=== PATIENT | female | born 1995 | race Caucasian/White ===

== ENCOUNTER 2017-07-02 19:34 | Inpatient (IN) | payer BC ==
[2017-07-03 00:35] LABS: ABS Basophils 0 10^3/ul (0-0.2); ABS Eosinophils 0 10^3/ul (0-0.6); ABS Monocytes 0.5 10^3/ul (0-0.8); ABS Neutrophils 11.7 10^3/ul (1.5-7.7); ABS Nucleated RBC 0 10^3/ul; Eosinophil % 0 % (0-6); Hematocrit 32 % (35-47); Hemoglobin 11.4 g/dl (12.0-16.0); Lymphocyte % 7.8 % (25-47); Mean Corpuscular HGB Conc 35 g/dl (31-36); Mean Corpuscular Hemoglobin 33 pg (27-31); Mean Corpuscular Volume 93 fL (80-97); Mean Platelet Volume 9 um3 (7.4-10.4); Nucleated Red Blood Cells % 0.1; Platelet Count 219 10^3/ul (150-450); Red Blood Count 3.47 10^6/ul (4.0-5.4); Red Cell Distribution Width 12 % (10.5-15); White Blood Count 13.2 10^3/ul (3.5-10.8)
[2017-07-03] MEDS ORDERED: OBEPIDURAL* 250 ML EPIDURAL ONE (00:40)
[2017-07-03] MEDS ORDERED: Sodium Citrate/Citric Acid* 15 ML UDC PO PRN (01:23)
[2017-07-03] MEDS ORDERED: Famotidine TAB* 20 MG PO PRN (01:23)
[2017-07-03] MEDS ORDERED: Phenylephrine IV* 40 MCG/ML 10 ML SYRINGE IV PUSH PRN ×2 (01:23)
[2017-07-03] MEDS ORDERED: Lidocaine 1% MPF* 2 ML VIAL ONE (01:48)
[2017-07-03] MEDS ORDERED: OBEPIDURAL* 250 ML EPIDURAL SCH (02:00)
[2017-07-03] MEDS ORDERED: ceFOXitin 2 GM IVPREMIX* 2 GM/50 ML BAG IVPB ONE (06:50)
[2017-07-03] MEDS ORDERED: ceFOXitin 2 GM IVPREMIX* 2 GM/50 ML BAG ONE (06:52)
[2017-07-03] MEDS ORDERED: Morphine PF AMP (0.5MG/ML)* 5 MG/10 ML AMP ONE (07:11)
[2017-07-03] MEDS ORDERED: fentaNYL* 50 MCG/ML 2 ML VIAL (100 MCG VIAL) IV PRN (08:58)
[2017-07-03] MEDS ORDERED: diPHENhydraMINE IV* 50 MG/ML 1 ml VIAL (BENADRYL) IV PRN (08:58)
[2017-07-03] MEDS ORDERED: Naloxone* 0.4 MG/ML 1 ML VIAL IV PRN ×2 (08:58→09:00)
[2017-07-03] MEDS ORDERED: oxyCODONE/Acetamin 5/325 MG* TAB PO PRN (09:00)
[2017-07-03] MEDS ORDERED: Naloxone* 2 MG in NS 0.9% 250 ML* 250 ML IV PRN (09:00)
[2017-07-03] MEDS ORDERED: Ondansetron INJ* 2 MG/ML VIAL IV PRN (09:00)
[2017-07-03] MEDS ORDERED: Nalbuphine* 20 MG/ML 1 ML VIAL IV PRN (09:00)
[2017-07-03] MEDS ORDERED: Acetaminophen TAB* 325 MG PO PRN (09:11)
[2017-07-03] MEDS ORDERED: Glycerin ADULT SUPP PR PRN (09:11)
[2017-07-03] MEDS ORDERED: Dibucaine 1% 28.35 GM TUBE PR PRN (09:11)
[2017-07-03] MEDS ORDERED: Witch Hazel PAD* JAR TOPICAL PRN (09:11)
[2017-07-03] MEDS ORDERED: Oxytocin in LR* 20 UNITS/1,000 ML BAG IVPB ONE (09:16)
[2017-07-03] MEDS ORDERED: Oxytocin in LR* 20 UNITS/1,000 ML BAG IVPB SCH (10:00)
[2017-07-03] MEDS: Simethicone TAB* 80 MG TAB.CHEW PO SCH ×3 (11:16→21:56)
[2017-07-03] MEDS: Docusate CAP* 100 MG PO SCH ×2 (14:17→21:56)
[2017-07-03] MEDS: Ketorolac INJ* 30 MG/ML 1 ML VIAL IV PRN ×2 (16:08→22:56)
[2017-07-04] MEDS: Ketorolac INJ* 30 MG/ML 1 ML VIAL IV PRN (04:46)
[2017-07-04 06:53] LABS: ABS Basophils 0 10^3/ul (0-0.2); ABS Eosinophils 0 10^3/ul (0-0.6); ABS Lymphocytes 1.5 10^3/ul (1.0-4.8); ABS Monocytes 1.2 10^3/ul (0-0.8); ABS Neutrophils 10.6 10^3/ul (1.5-7.7); ABS Nucleated RBC 0 10^3/ul; Eosinophil % 0.3 % (0-6); Hematocrit 27 % (35-47); Hemoglobin 9.6 g/dl (12.0-16.0); Lymphocyte % 11.2 % (25-47); Mean Corpuscular HGB Conc 36 g/dl (31-36); Mean Corpuscular Hemoglobin 33 pg (27-31); Mean Corpuscular Volume 94 fL (80-97); Mean Platelet Volume 8 um3 (7.4-10.4); Nucleated Red Blood Cells % 0; Platelet Count 185 10^3/ul (150-450); Red Blood Count 2.88 10^6/ul (4.0-5.4); Red Cell Distribution Width 13 % (10.5-15); White Blood Count 13.3 10^3/ul (3.5-10.8)
[2017-07-04] MEDS: Simethicone TAB* 80 MG TAB.CHEW PO SCH ×4 (07:53→21:07)
[2017-07-04] MEDS: Ferrous Gluconate TAB* 324 MG TAB PO SCH ×2 (07:53→21:06)
[2017-07-04] MEDS: Docusate CAP* 100 MG PO SCH ×3 (07:53→21:06)
--- NOTE | 2017-07-04 08:54 | OP ---
OPERATIVE REPORT: DATE OF OPERATION: 07/03/17 DATE OF : 89 SURGEON: Salima Corral MD ONLINE ADVERTISING ANALYST: Aureliano Deshpande CNM ANESTHESIOLOGIST: Dr. Reyna. ANESTHESIA: Spinal. DIE TROUBLE SHOOTER: Dr. Milan. PRE-OP DIAGNOSIS: Intrauterine at 40-5/7 weeks, arrest of descend. POST-OP DIAGNOSIS: Intrauterine at 40-5/7 weeks, arrest of descend, delivered. OPERATIVE PROCEDURE: Primary low transverse section with vacuum assist of head. ESTIMATED BLOOD LOSS: 600 cc. URINE OUTPUT: 400 cc of pink tinged urine with clearing in the tube. FLUIDS: 3000 cc of crystalloid. FINDINGS: Revealed a vertex female , LOT, deep transverse arrest, wedged in pelvis. No nuchal cord. No meconium. Apgars were 8 at 1 minute, 9 at 5 minutes. Normal appearing tubes and ovaries. Normal uterine cavity with no evidence of retained membranes or placental tissue. Normal appearing placenta, manually extracted, 3-vessel cord and intact. COMPLICATIONS: None apparent. DISPOSITION: Stable to recovery room. DESCRIPTION OF PROCEDURE: The patient was placed in dorsal lithotomy position. The abdomen was prepp ed and draped in a sterile standard fashion. Anesthesia was tested to appropriate level. The patien t was identified with universal protocol for correct procedure, position and patient. After universa l protocol, incision was made two fingerbreadths above the pubic symphysis that was carried down thro ugh to the fascia. The fascia was scored in the midline and the fascial incision was extended latera lly and superiorly using Avila scissors. The fascia was sharply and bluntly from the rectus muscle with blunt and sharp dissection and the peritoneum was then entered bluntly. Peritoneal inci devika was extended superiorly and inferiorly while directly visualizing the bowel and bladder with Met zenbaum scissors. The bladder blade was inserted. The lower uterine segment was identified, tented up with an Allis, and incised with scalpel. This was carried down through to the uterine cavity and the incision was extended laterally and superiorly using bandage scissors. The was found to b e left occiput transverse deep arrest with wedging in the pelvis. The head was reduced and delivered through the abdominal incision with vacuum. Anterior, then posterior shoulder delivered, then the c ord was allowed to pulse and was then milked and then clamped and then cut. The was handed of f to awaiting hand meat salter. Appropriate cord blood was obtained. The placenta was then manually ext racted and noted to be intact 3-vessel cord. The uterus was exteriorized. The uterine cavity was ex plored and noted to be free of any membranes or placental tissue. The uterus was wrapped in wet lapa rotomy sponge and the incision was clamped with broad Allises. The uterine incision itself was reapp roximated in two layers, first layer running locked 0 Vicryl x2 and the second layer running imbricat ed 0 Vicryl x1. Uterus was returned intra-abdominally. Hemostasis was noted at the hysterotomy site. Colic gutters were lavaged and hemostasis again was reassured at the hysterotomy site. The periton eum was then clamped with Kellys and reapproximated using 3-0 Vicryl in a running fashion. Subfascia l area was visualized and hemostasis assured. The fascia was then reapproximated using 0 Vicryl x2 i n a running fashion. Subcu was lavaged and noted to be under 2 cm in thickness. Bovie coagulation w as used to assure hemostasis and then the skin was reapproximated using a 4-0 Monocryl in a subcuticu lar fashion. Mastisol and Steri's were applied. All sponge, needle, instrument, and blade counts wer e correct throughout the case and then both patient and baby were taken into recovery room. Patient remained stable throughout the entirety of the case. [id number]/[facility] #: [id number]
[2017-07-04] MEDS: Ibuprofen TAB* 600 MG PO PRN ×3 (10:40→23:10)
[2017-07-04] MEDS: oxyCODONE/Acetamin 5/325 MG* TAB PO PRN (17:14)
[2017-07-05] MEDS: Ibuprofen TAB* 600 MG PO PRN ×3 (04:25→17:05)
[2017-07-05] MEDS: oxyCODONE/Acetamin 5/325 MG* TAB PO PRN ×3 (06:50→17:05)
--- NOTE | 2017-07-05 06:54 | PTEDU ---
Patient Name: JAILYN RAVI JAILYN RAVI selected video: Never Ever Shake a Baby to view on 07/05/2017 at 6:53:41 AM from [facility] [id number]
--- NOTE | 2017-07-05 07:04 | PTEDU ---
Patient Name: JAILYN RAVI JAILYN RAVI selected video: BBOB: Nurturing Your Gorgeous &Growing Baby by to view o n 07/05/2017 at 7:03:42 AM [email or web address]
--- NOTE | 2017-07-05 07:33 | PTEDU ---
Patient Name: JAILYN RAVI JAILYN RAVI selected video: Follow Me Mum: The Diallo to Successful to view on 07/05/19 18 at 7:32:21 AM from [id number]
[2017-07-05] MEDS: Docusate CAP* 100 MG PO SCH ×3 (09:16→21:01)
[2017-07-05] MEDS: Ferrous Gluconate TAB* 324 MG TAB PO SCH ×2 (09:16→21:01)
[2017-07-05] MEDS: Simethicone TAB* 80 MG TAB.CHEW PO SCH ×4 (09:16→21:01)
[2017-07-06] MEDS: Ibuprofen TAB* 600 MG PO PRN ×2 (02:05→08:51)
[2017-07-06] MEDS: Ferrous Gluconate TAB* 324 MG TAB PO SCH (08:51)
[2017-07-06] MEDS: Docusate CAP* 100 MG PO SCH ×2 (08:52→12:11)
[2017-07-06] MEDS: Simethicone TAB* 80 MG TAB.CHEW PO SCH ×2 (08:52→12:11)
[2017-07-06 09:41] VITALS: BP 109/70
[2017-07-06] MEDS: oxyCODONE/Acetamin 5/325 MG* TAB PO PRN (12:11)
== END 2017-07-06 12:44 | disposition home or self-care (01) | DRG 540 ==
LOC: MCHOBOUT 19:34 → MCHOB 20:24
PROVIDERS: ADMIT Midwife; ATTEND Obstetrics & Gynecology
PROC: 10907ZC Drainage of Amniotic Fluid, Therapeutic from Products of Conception, Via Natural or Artificial Opening (ICD-10-PCS; 2017-07-03)
PROC: 10D00Z1 Extraction of Products of Conception, Low, Open Approach (ICD-10-PCS; principal; 2017-07-03 07:18)
DX: O32.4XX0 Maternal care for high head at term, not applicable or unspecified (principal); D64.9 Anemia, unspecified; O48.0 Post-term pregnancy; O77.0 Labor and delivery complicated by meconium in amniotic fluid; O90.81 Anemia of the puerperium; Z3A.40 40 weeks gestation of pregnancy; Z37.0 Single live birth
CPT/HCPCS: 36415; 85025; 86850; 86870; 86880; 86900; 86901; A9270-GY; J0694; J1885; J2405

== ENCOUNTER 2017-10-11 12:22 | Emergency (ER) | payer BC ==
[2017-10-11 12:42] VITALS: BP 112/72
--- NOTE | 2017-10-11 12:52 | ED ---
Throat Pain/Nasal Congestion - HPI Summary HPI Summary: 22F presents with sore throat off and on for past week. She also admits to a cough that today got worst. The cough is dry. She admits to sinus congestion and post nasal drip. She denies any SOB or chest pain. She denies any abdominal pain, nausea or vomiting. no history of strept but has infant at home and wants to make sure. She states someone saw white in her throat. She has tried OTC cough medication. - History of Current Complaint Chief Complaint: UCRespiratory Time Seen by Provider: 10/11/17 12:44 - Allergies/Home Medications Allergies/Adverse Reactions: Allergies Allergy/AdvReac Type Severity Reaction Status Date / Time latex Allergy Rash And Verified 10/11/17 12:42 Itching PMH/Surg Hx/FS Hx/Imm Hx Endocrine/Hematology History: Denies: Hx Anticoagulant Therapy Respiratory History: Denies: Hx Asthma - Surgical History Surgery Procedure, Year, and Place: Infectious Disease History: No Infectious Disease History: Denies: Traveled Outside the [place] in Last 30 Days - Family History Known Family History: Positive: Unknown - Social History Alcohol Use: None Substance Use Type: Reports: None Smoking Status (MU): Never Smoked Tobacco Review of Systems Negative: Fever Positive: Sore Throat Negative: Chest Pain Positive: Cough. Negative: Shortness Of Breath Negative: Abdominal Pain All Other Systems Reviewed And Are Negative: Yes Physical Exam Triage Information Reviewed: Yes Vital Signs On Initial Exam: Initial Vitals Temp Pulse Resp BP Pulse Ox 98.1 F 89 18 112/72 100 10/11/17 12:38 10/11/17 12:38 10/11/17 12:38 10/11/17 12:38 10/11/17 12:38 Vital Signs Reviewed: Yes Appearance: Positive: Well-Appearing Skin: Positive: Warm, Dry Head/Face: Positive: Normal Head/Face Inspection Eyes: Positive: Normal, EOMI, DOROTHY, Conjunctiva Clear ENT: Positive: Normal ENT inspection, Pharyngeal erythema, Uvula midline, Other - soft palate symmetric. Negative: Tonsillar swelling, Tonsillar exudate, Trismus, Muffled voice Neck: Positive: Supple, Nontender, No Lymphadenopathy Respiratory/Lung Sounds: Positive: Clear to Auscultation, Breath Sounds Present Cardiovascular: Positive: Normal, RRR Abdomen Description: Positive: Nontender, Soft Bowel Sounds: Positive: Present Musculoskeletal: Positive: Normal Neurological: Positive: Normal Psychiatric: Positive: Normal Diagnostics - Vital Signs Vital Signs Temp Pulse Resp BP Pulse Ox 10/11/17 12:38 98.1 F 89 18 112/72 100 - Laboratory Lab Statement: Any lab studies that have been ordered have been reviewed, and results considered in the medical decision making process. EENT Course/Dx - Course Course Of Treatment: 22F presents with sore throat off and on for past week. She also admits to a cough that today got worst. The cough is dry. She admits to sinus congestion and post nasal drip. She denies any SOB or chest pain. She denies any abdominal pain, nausea or vomiting. no history of strept but has infant at home and wants to make sure. She states someone saw white in her throat. She has tried OTC cough medication. on exam pharynx erythematous with uvula midline and soft palate symmetric. strept neg. will treat with tessalon and flonase. patient understand and agrees with plan. - Differential Diagnoses Differential Diagnoses: Pharyngitis, Tonsilitis, URI/Bronchitis - Diagnoses Provider Diagnoses: Upper respiratory infection Discharge - Sign-Out/Discharge Documenting (check all that apply): Discharge/Admit/Transfer - Discharge Plan Condition: Good Disposition: HOME Prescriptions: Benzonatate CAP* [Tessalon 100 MG CAP*] 100 mg PO TID PRN #21 cap PRN Reason: Cough Fluticasone NASAL SPRAY 50MCG* [Flonase NASAL SPRAY 50MCG*] 2 spray BOTH NARES DAILY #1 btl Patient Education Materials: Upper Respiratory Infection (ED) Referrals: [facility] [Outside] Additional Instructions: Use Flonase one spray each nostril twice a day Use Tessalon three times a day for cough Use saline in the nose for nasal congestion Can Tylenol or ibuprofen every 6 hours for pain Use salt water gargles for sore throat Establish care with primary Return to ED if develop any new or worsening symptoms - Billing Disposition and Condition Condition: GOOD Disposition: HOME
== END 2017-10-11 13:13 | disposition home or self-care (01) ==
LOC: UCEAST 12:22
DX: J06.9 Acute upper respiratory infection, unspecified (principal); Z91.040 Latex allergy status
CPT/HCPCS: 87651; 99212; G0463

== ENCOUNTER 2018-02-20 11:08 | Emergency (ER) | payer BC ==
[2018-02-20 11:40] VITALS: BP 115/76
--- NOTE | 2018-02-20 11:50 | UC ---
Ear Complaint HPI - HPI Summary HPI Summary: Pt c/o left ear pain X 2 days. Pt had onset of URI 6 days ago, now has left ear pain that radiates along left side lower jaw and has tender "lump" left side of neck and under left side lower jaw. - History of Current Complaint Chief Complaint: UCEar Stated Complaint: LEFT EAR,SORE THROAT Time Seen by Provider: 02/20/18 11:36 Hx Obtained From: Patient Hx Last Menstrual Period: 02/06/18 ?: No Onset/Duration: Gradual Onset, Lasting Days, Still Present Severity Initially: Moderate Severity Currently: Moderate Pain Intensity: 6 Associated Signs/Symptoms: Positive: URI Symptoms - Allergies/Home Medications Allergies/Adverse Reactions: Allergies Allergy/AdvReac Type Severity Reaction Status Date / Time latex Allergy Rash And Verified 02/20/18 11:40 Itching Home Medications: Home Medications Acetaminophen [Acetaminophen Extra Strength] 1,000 mg PO ONCE PRN 02/20/18 [ History Confirmed 02/20/18] PMH/Surg Hx/FS Hx/Imm Hx Previously Healthy: Yes Other History Of: Negative For: Anticoagulant Therapy - Surgical History Surgical History: Yes Surgery Procedure, Year, and Place: - Family History Known Family History: Positive: Cardiac Disease - Social History Occupation: Employed Full-time, Works From/At Home Lives: With Family Alcohol Use: None Substance Use Type: None Smoking Status (MU): Never Smoked Tobacco Have You Smoked in the Last Year: No - Immunization History Most Recent Influenza Vaccination: Fall 2016 Most Recent Pneumonia Vaccination: N/A Vaccination Up to Date: Yes Review of Systems Constitutional: Negative Skin: Negative Eyes: Negative ENT: Ear Ache Respiratory: Negative Cardiovascular: Negative Gastrointestinal: Negative Genitourinary: Negative Motor: Negative Neurovascular: Negative Musculoskeletal: Negative Neurological: Negative Psychological: Negative Is Patient Immunocompromised?: No All Other Systems Reviewed And Are Negative: Yes Physical Exam Triage Information Reviewed: Yes Appearance: Well-Appearing Vital Signs: Initial Vital Signs Temp 98.1 F 02/20/18 11:34 Pulse 76 02/20/18 11:34 Resp 14 02/20/18 11:34 BP 115/76 02/20/18 11:34 Pulse Ox 100 02/20/18 11:34 Vital Signs Reviewed: Yes Eye Exam: Normal ENT: Positive: Nasal congestion, TM bulging - lsight bulging of left TM at 6 o' clock position Dental Exam: Normal Neck exam: Normal Neck: Positive: Enlarged Nodes @ - left submandibular Respiratory Exam: Normal Cardiovascular Exam: Normal Musculoskeletal Exam: Normal Neurological Exam: Normal Psychological Exam: Normal Skin Exam: Normal Ear Complaint Course/Dx - Differential Dx/Diagnosis Differential Diagnosis/HQI/PQRI: Otitis Media, URI Provider Diagnoses: left ear ache. left submandibular lymphadenopathy Discharge - Sign-Out/Discharge Documenting (check all that apply): Patient Departure All imaging exams completed and their final reports reviewed: No Studies - Discharge Plan Condition: Stable Disposition: HOME Patient Education Materials: Lymphadenopathy (ED), Earache (ED) Referrals: [facility] [Outside] No Primary Care Phys,NOPCP [Primary Care Provider] - - Billing Disposition and Condition Condition: STABLE Disposition: Home
== END 2018-02-20 11:59 | disposition home or self-care (01) ==
LOC: UCCORT 11:08
DX: H92.02 Otalgia, left ear (principal); R59.1 Generalized enlarged lymph nodes
CPT/HCPCS: 99211; G0463

== ENCOUNTER 2019-07-14 08:54 | Emergency (ER) | payer BC ==
--- NOTE | 2019-07-14 09:27 | ED ---
- HPI Summary HPI Summary: The patient is a 23 y/o F presenting to [facility] with a chief complaint of vagina bleeding this morning at 13 weeks gravid. She reports a history of miscarriage at 6 weeks occurring 3.5 years ago with A1. She has been following with [facility] CRM SYSTEM ADMINISTRATOR with ultrasounds at 8 and 9 weeks. She has not experienced any bleeding thus far in the until now. The bleeding is not a significant amount, but it was enough to seep through her underwear. There were no visible clots, and the bleeding has stopped. She endorses nausea but states it is usual for her pregnancies. She denies any abdominal cramping, vomiting, dysuria, burning with urination, CP, SOB. Symptoms rated 0/10 in severity. She notes that she received Rhogam with previous miscarriage. No trauma to the abdomen. PMHx: Caesarian section. Nonsmoker, no EtOH, no substance use. Medications reviewed. Allergies noted. - History of Current Complaint Chief Complaint: EDOBProblems Stated Complaint: 13 WEEKS PREG- BLEEDING PER PT Time Seen by Provider: 07/14/19 09:13 Hx Obtained From: Patient Chief Complaint: Vaginal Bleeding Onset/Duration: Started Hours Ago, Resolved Timing: Lasting Minutes Severity: Moderate Current Severity: None Pain Intensity: 0 Location of Pain: None Associated Signs and Symptoms: Positive: Nausea, Vaginal Bleeding or Discharge - bleeding. Negative: Urinary Symptoms, Vomiting - Assessment Hx Now: No SAB: 1 IEA: 0 - Additional Pertinent History Maternal Blood Type and Rh: A Negative - Allergies/Home Medications Allergies/Adverse Reactions: Allergies Allergy/AdvReac Type Severity Reaction Status Date / Time latex Allergy Rash And Verified 07/14/19 08:58 Itching Home Medications: Home Medications Vits96/Iron Fum/Folic [ Tablets 27-0.8 mg] 1 tab PO DAILY 07/14 [History Confirmed 07/14/19] PMH/Surg Hx/FS Hx/Imm Hx Endocrine/Hematology History: Denies: Hx Anticoagulant Therapy, Hx Diabetes Cardiovascular History: Denies: Hx Hypertension Respiratory History: Denies: Hx Asthma Sensory History: Denies: Hx Legally Blind, Hx Deafness Opthamlomology History: Denies: Hx Legally Blind EENT History: Denies: Hx Deafness - Surgical History Surgical History: Yes Surgery Procedure, Year, and Place: Infectious Disease History: No Infectious Disease History: Denies: Traveled Outside the [place] in Last 30 Days - Family History Known Family History: Positive: Cardiac Disease - Social History Alcohol Use: None Hx Substance Use: No Substance Use Type: Reports: None Hx Tobacco Use: No Smoking Status (MU): Never Smoked Tobacco Have You Smoked in the Last Year: No Review of Systems Negative: Chest Pain Negative: Shortness Of Breath Positive: Nausea. Negative: Abdominal Pain, Vomiting Positive: other - vaginal bleeding. Negative: burning, dysuria All Other Systems Reviewed And Are Negative: Yes Physical Exam - Summary Physical Exam Summary: Constitutional: Well-developed, Well-nourished, Alert. (-) Distressed Skin: Warm, Dry HENT: Normocephalic; Atraumatic Eyes: Conjunctiva normal Neck: Musculoskeletal ROM normal neck. (-) JVD, (-) Stridor, (-) Tracheal deviation Cardio: Rhythm regular, rate normal, Heart sounds normal; Intact distal pulses; The pedal pulses are 2+ and symmetric. Radial pulses are 2+ and symmetric. (-) Murmur Pulmonary/Chest wall: Effort normal. (-) Respiratory distress, (-) Wheezes, (-) Rales Abd: Soft, (-) tenderness, (-) Distension, (-) Guarding, (-) Rebound Musculoskeletal: (-) Edema Lymph: (-) Cervical adenopathy Neuro: Alert, Oriented x3 Psych: Mood and affect Normal - Physical Exam Triage Information Reviewed: Yes Vital Signs Reviewed: Yes Procedures - Sedation Patient Received Moderate/Deep Sedation with Procedure: No Diagnostics - Vital Signs Vital Signs Temp Pulse Resp BP Pulse Ox 07/14/19 08:55 98.7 F 92 16 130/81 100 - Laboratory Result Diagrams: 07/14/19 09:22 07/14/19 09:22 Lab Statement: Any lab studies that have been ordered have been reviewed, and results considered in the medical decision making process. - Ultrasound US Ultrasound Interpretation Completed By: Radiologist Summary of Ultrasound Findings: Impression: 1. Questionable trace subchorionic fluid/hemorrhage (see image 26). 2. Single intrauterine . movement was observed with a heart rate of 163 BPM. This imaging report was reviewed by Dr. Zarate. Re-Evaluation - Re-Evaluation First Eval Re-Evaluation Time: 10:45 Comment: Discussed results and plan for d/c, advised CRM SYSTEM ADMINISTRATOR f/u Course/Dx - Course Course Of Treatment: 23 y/o F who is 13 weeks gravid presenting with isolated and resolved episode of vaginal bleeding without clots this morning. Nausea consistent with . No vomiting, abdominal cramping, urinary symptoms. No known abdominal trauma. History of miscarriage at 6 weeks occurring 3.5 years ago with Rhogam use, , A1. Physical exam reveals no acute abnormalities. Patient received Rhogam. [place] [address]+. US impression reveals questionable trace subchorionic fluid /hemorrhage, single intrauterine with movement and HR of 163 BPM. All results discussed. Patient is safe for discharge with follow up with OB /GRINDER TENDER. Patient agreeable with plan. - Diagnoses Provider Diagnoses: Vaginal bleeding during Discharge ED - Sign-Out/Discharge Documenting (check all that apply): Patient Departure - Patient will be discharged home. - Discharge Plan Condition: Stable Disposition: HOME Patient Education Materials: Non-Threatening First Trimester Vaginal Bleed (ED) , at 11 to 14 Weeks (ED) Referrals: Caitlin Marcial MD [Medical Doctor] - 2 Days [facility] [Outside] - 3 Days Additional Instructions: Follow up with your CRM SYSTEM ADMINISTRATOR on 07/18/2019. Return to the emergency department for any new or worsening symptoms. - Billing Disposition and Condition Condition: STABLE Disposition: Home - Attestation Statements Document Initiated by Kyrie: Yes Documenting Scribe: Shelley Martinez Provider For Whom Kyrie is Documenting (Include Credential): DO Mikki Escotoibe Attestation: Shelley Gomes scribed for Dr. King Zarate DO on 07/14/19 at 1307. Scribe Documentation Reviewed: Yes Provider Attestation: The documentation as recorded by the Shelley ayon accurately reflects the service I personally performed and the decisions made by me, Dr. King Zarate DO Status of Scrjimmy Document: Viewed
[2019-07-14 09:32] LABS: ABS Eosinophils 0.1 10^3/ul (0-0.6); ABS Lymphocytes 1.2 10^3/ul (1.0-4.8); ABS Monocytes 0.3 10^3/ul (0-0.8); Eosinophil % 1.5 %; Hematocrit 36 % (35-47); Hemoglobin 12.7 g/dL (12.0-16.0); Lymphocyte % 25.9 %; Mean Corpuscular HGB Conc 35 g/dL (31-36); Mean Corpuscular Hemoglobin 33 pg (27-31); Mean Corpuscular Volume 94 fL (80-97); Mean Platelet Volume 8.2 fL (7.4-10.4); Nucleated Red Blood Cells % 0.1; Platelet Count 185 10^3/uL (150-450); Red Blood Count 3.87 10^6 /uL (3.70-4.87); Red Cell Distribution Width 13 % (10-15); White Blood Count 4.7 10^3/uL (3.5-10.8)
[2019-07-14 09:52] LABS: Albumin/Globulin Ratio 1.3 (1-3); BUN/Creatinine Ratio 11.1 (8-20); Calcium 8.9 mg/dL (8.6-10.3); EGFR African American 139.3 (>60); EGFR Non-African American 115.1 (>60); Globulin 3.1 g/dL (2-4); Potassium 3.6 mmol/L (3.5-5.0); Total Bilirubin 0.5 mg/dL (0.2-1.0); Total Protein 7.1 g/dL (6.4-8.9)
[2019-07-14] MEDS ORDERED: RHO D Immune Globulin (HUMAN)* 300 MCG = 1,500 I.U. INJ IM SCH (11:00)
[2019-07-14 13:00] VITALS: BP 106/68
== END 2019-07-14 13:00 | disposition home or self-care (01) ==
LOC: ED 08:54
DX: O20.9 Hemorrhage in early pregnancy, unspecified (principal); Z3A.13 13 weeks gestation of pregnancy; Z91.040 Latex allergy status
CPT/HCPCS: 36415; 76801; 80053; 84702; 85025; 86850; 86870; 86880; 86900; 86901; 96372; 99283; J2790

== ENCOUNTER 2020-01-20 09:31 | Inpatient (IN) ==
[2020-01-20] MEDS ORDERED: Lactated Ringers 1000 ml BAG 1,000 ML IV ONE (10:37)
[2020-01-20] MEDS ORDERED: Lactated Ringers 1000 ml BAG 1,000 ML IV SCH ×2 (11:00→17:00)
[2020-01-20 11:25] LABS: ABS Lymphocytes 1.3 10^3/ul (1.0-4.8); ABS Monocytes 0.6 10^3/ul (0-0.8); ABS Neutrophils 4.6 10^3/ul (1.5-7.7); Eosinophil % 0.7 %; Hematocrit 34 % (35-47); Hemoglobin 11.9 g/dL (12.0-16.0); Lymphocyte % 19.7 %; Mean Corpuscular HGB Conc 35 g/dL (31-36); Mean Corpuscular Hemoglobin 33 pg (27-31); Mean Corpuscular Volume 95 fL (80-97); Mean Platelet Volume 9.1 fL (7.4-10.4); Platelet Count 177 10^3/uL (150-450); Red Blood Count 3.58 10^6 /uL (3.70-4.87); Red Cell Distribution Width 13 % (10-15); White Blood Count 6.5 10^3/uL (3.5-10.8)
[2020-01-20 11:40] LABS: Urine Benzodiazepine Screen None Detected (None Detect); Urine Cannabinoids Screen None Detected (None Detect); Urine Opiates Screen None Detected (None Detect)
[2020-01-20] MEDS ORDERED: OBEPIDURAL 250 ML EPIDURAL ONE (13:51)
[2020-01-20] MEDS ORDERED: Phenylephrine 40 mcg/mL 10mL (400mcg) SYRINGE ONE (13:59)
[2020-01-20] MEDS ORDERED: Sodium Citrate/Citric Acid LIQ 15 ML UDC PO PRN (14:44)
[2020-01-20] MEDS ORDERED: OBEPIDURAL 250 ML EPIDURAL SCH (15:00)
[2020-01-20] MEDS ORDERED: Oxytocin in LR 20 UNITS/1,000 ML BAG IVPB ONE (15:20)
[2020-01-20] MEDS ORDERED: Witch Hazel PAD JAR TOPICAL PRN (16:03)
[2020-01-20] MEDS ORDERED: RHO D Immune Globulin (HUMAN) 300 MCG = 1,500 I.U. INJ IM ONE (16:03)
[2020-01-20] MEDS ORDERED: Dibucaine 1% OINT 28.35 GM TUBE PR PRN (16:03)
[2020-01-20] MEDS ORDERED: Glycerin ADULT 2.4 gm SUPP PR PRN (16:03)
[2020-01-20] MEDS ORDERED: Oxytocin in LR 20 UNITS/1,000 ML BAG IVPB SCH (17:00)
[2020-01-20] MEDS ORDERED: Lidocaine 1% VIAL 10 MG/ML VIAL ONE (17:09)
[2020-01-20] MEDS ORDERED: Oxytocin 10 UNITS/ML 1 ML VIAL ONE (17:09)
[2020-01-21 08:04] LABS: ABS Lymphocytes 1.2 10^3/ul (1.0-4.8); ABS Monocytes 1.1 10^3/ul (0-0.8); ABS Neutrophils 8.7 10^3/ul (1.5-7.7); Eosinophil % 0.3 %; Hematocrit 32 % (35-47); Hemoglobin 11.4 g/dL (12.0-16.0); Mean Corpuscular HGB Conc 36 g/dL (31-36); Mean Corpuscular Hemoglobin 35 pg (27-31); Mean Corpuscular Volume 95 fL (80-97); Mean Platelet Volume 8.7 fL (7.4-10.4); Platelet Count 159 10^3/uL (150-450); Red Blood Count 3.31 10^6 /uL (3.70-4.87); Red Cell Distribution Width 13 % (10-15); White Blood Count 11.1 10^3/uL (3.5-10.8)
[2020-01-21 11:54] VITALS: BP 101/54
== END 2020-01-21 16:23 | disposition home or self-care (01) ==
LOC: MCHOBOUT 09:31 → MCHOB 10:37
PROVIDERS: ADMIT Obstetrics & Gynecology; ATTEND Obstetrics & Gynecology